=== PATIENT | female | born 1990 ===

== ENCOUNTER 2022-07-26 10:12 | Inpatient (IN) ==
[2022-07-26] MEDS ORDERED: LIDOCAINE 1% LOCAL 20 ML VIAL INFIL PRN (10:27)
[2022-07-26] MEDS ORDERED: PENICILLIN G POTASSIUM 6 MU in DEXTROSE 5% 250 ML IV STA (10:27)
[2022-07-26] MEDS ORDERED: OXYTOCIN 30 UNITS/500 ML BAG IV PRN ×2 (10:27→11:44)
[2022-07-26] MEDS ORDERED: LACTATED RINGER'S 1,000 ML IV PRN (10:27)
[2022-07-26] MEDS ORDERED: ePHEDrine sulfate 50 MG/ML AMP ONE (10:34)
[2022-07-26] MEDS ORDERED: SODIUM CHLORIDE 0.9% INJ 10 ML VIAL ONE (10:35)
[2022-07-26] MEDS ORDERED: fentaNYL citrate 100 MCG/2 ML VIAL ONE (10:35)
[2022-07-26] MEDS ORDERED: BUPIVACAINE 0.25% 30 ML VIAL ONE (10:35)
[2022-07-26] MEDS ORDERED: LIDOCAINE 2%/EPINEPHRINE 1:200,000 20 ML SDV ONE (10:35)
[2022-07-26] MEDS ORDERED: fentaNYL 2MCG/ML ROPIVACAINE 1.25MG/ML 100 ML BAG EPI ONE (10:35)
--- NOTE | 2022-07-26 10:43 | History & Physical Report ---
Date of Service July 26, 2022 Assessment & Plan (1) Active labor at term: (2) Carrier of group B Streptococcus: Plan - Patient admitted to labor and delivery for active labor - Patient martín q 2-3 minutes and significantly uncomfortable - Requesting epidural - Patient is at 5-6 cm (from 2.5 overnight) w/ evidence of contractions - GBS positive, PCN ordered - Will augment PRN - Will consider ROM PRN - Labs pending History of Present Illness Chief Complaint: Labor Primary Care Provider: NO PCP Jihan is a 31 year old female G7Pe currently at EGD 40 0 with RODRIGO 07/26/21 by LMP 10/19/21 who is presenting to L&D for active labor. Complications: GBS+ Movement: Yes Fluid Loss/ROM: No Bloody show/discharge: No Contractions: Worsening since 7 AM External FHT and uterine monitor: Category 1, tracing reactive, good FHT variability (acels w/o dcels), evidence of contractions q2 minutes Last OB appointment: 07/25, regular care [facility]END[facility] Hx: Abnormal pap 12/23 (ASCUS), colposcopy recommended PP, HPV+, no other STI Labs: Blood Type: O+ Antibody Screen: Negative Hg/Hct (today): Pending WBC/Plt (today): Pending Rubella: Immune RPR: Non-reactive Gonorrhea: Negative Chlamydia: Negative HIV: Negative HbSAg: Negative GBS: Positive Quad Screen: Negative ROS: - Denies fever, chills, sweats - Denies dyspnea or pleuritic pain - Denies chest pain, palpitations, or pressure - Denies breast pain - Denies dysuria - Denies headache or visual changes Allergies Allergy/AdvReac Type Severity Reaction Status Date / Time horowitz Allergy Severe Swelling Verified 07/25/22 19:35 of Lip/Tongue/Throat chicken derived Allergy Severe Swelling Verified 07/25/22 19:35 of Lip/Tongue/Throat cinnamon Allergy Severe Swelling Verified 07/25/22 19:35 of Lip/Tongue/Throat egg Allergy Severe Swelling Verified 07/25/22 19:35 of Lip/Tongue/Throat onion Allergy Severe Swelling Verified 07/25/22 19:35 of Lip/Tongue/Throat strawberry Allergy Severe Swelling Verified 07/25/22 19:35 of Lip/Tongue/Throat wheat Allergy Severe Swelling Verified 07/25/22 19:35 of Lip/Tongue/Throat chlorpromazine Allergy Intermediate Anxiety Verified 07/25/22 19:35 [From Thorazine] hydroxyzine [From Vistaril] Allergy Intermediate Anxiety Verified 07/25/22 19:35 milk Allergy Intermediate Swelling Verified 07/25/22 19:35 of Lip/Tongue/Throat peanut Allergy Swelling Verified 07/25/22 11:06 of Lip/Tongue/Throat Home Medications Medication Instructions Recorded Confirmed Type famotidine 20 mg tablet (Pepcid) 20 mg PO DAILY 07/26/22 07/26/22 History Patient History Medical History Anxiety COVID-19 affecting in first trimester February 2022 History of chicken pox History of depression Pt reports she has PP depression after each delivery HPV (human papilloma virus) infection Miscarriage Status post elective Surgical History S/P dilatation and curettage TAB Family History Mother Hypertension Father Hypertension Denies family history of Ovarian cancer Breast cancer Colorectal cancer Social History Smoking Status: Never smoker Hx Alcohol Use: No Hx Substance Use: No Preferred Language: Ghanaian Communication Ability: Effective Credit Collections Rep Required: No Beliefs That Will Affect Care: None marital status: Single marital status details: shalini PendletonJR (26) [phone] Current Living Situation: Significant Other Current Living Situation Comment: Lives with Reji and daughter current occupational status: employed current occupation: [employer] Other Information That Helps Us Care for You: No Feels Safe at Home: Yes Assistive Devices: Glasses Physical Exam Physical Exam: General: Alert, oriented. No acute distress. Cardiac: Regular rate and rhythm, no murmurs/rubs/gallops. Respiratory: Clear to auscultation bilaterally a/p, no wheezes/rales/rhonchi. No increased work of breathing. Symmetrical chest rise. No respiratory distress. Abdomen: Gravid; reactive FHTs; Position: V Pelvic: per Dr. Healy Lower Extremities: No lower extremity edema or swelling. No deep calf pain. Jessika's negative bilaterally. Supervising Physician Co-Signing Physician Notes patient seen with resident and agree with the above findings and plan. Resident Activity Tracking Resident Involvement: Resident Care Provided Care Provided: OB Delivery
[2022-07-26] MEDS ORDERED: NALOXONE HCL 1 MG in SODIUM CHLORIDE 0.9% 1000ML 1,000 ML IV PRN (10:45)
[2022-07-26] MEDS ORDERED: ePHEDrine sulfate 50 MG/ML AMP IV PRN (10:45)
[2022-07-26] MEDS ORDERED: NALOXONE HCL 0.4 MG/1 ML VIAL/CARP IV PRN (10:45)
[2022-07-26] MEDS ORDERED: NALBUPHINE HCL INJ 10 MG/ML AMP IV PRN (10:45)
[2022-07-26] MEDS ORDERED: fentaNYL 2MCG/ML ROPIVACAINE 1.25MG/ML 100 ML BAG EPI PRN (10:45)
[2022-07-26] MEDS ORDERED: ONDANSETRON INJ 2 MG/ML 2 ML VIAL IV PRN (10:45)
--- NOTE | 2022-07-26 10:47 | Anesthesiology Consultation ---
Date of Service July 26, 2022 Assessment & Plan ASA ASA2 Proposed Anesthesia Anesthesia Type: General Risk / Benefits Reviewed With: PT / POA / Parent / Guardian, Accepts Plan and Informed Consent Obtained History Height/Weight Height: 5 ft 2 in Weight: 77.564 kg Allergies Allergy/AdvReac Type Severity Reaction Status Date / Time horowitz Allergy Severe Swelling Verified 07/25/22 19:35 of Lip/Tongue/Throat chicken derived Allergy Severe Swelling Verified 07/25/22 19:35 of Lip/Tongue/Throat cinnamon Allergy Severe Swelling Verified 07/25/22 19:35 of Lip/Tongue/Throat egg Allergy Severe Swelling Verified 07/25/22 19:35 of Lip/Tongue/Throat onion Allergy Severe Swelling Verified 07/25/22 19:35 of Lip/Tongue/Throat strawberry Allergy Severe Swelling Verified 07/25/22 19:35 of Lip/Tongue/Throat wheat Allergy Severe Swelling Verified 07/25/22 19:35 of Lip/Tongue/Throat chlorpromazine Allergy Intermediate Anxiety Verified 07/25/22 19:35 [From Thorazine] hydroxyzine [From Vistaril] Allergy Intermediate Anxiety Verified 07/25/22 19:35 milk Allergy Intermediate Swelling Verified 07/25/22 19:35 of Lip/Tongue/Throat peanut Allergy Swelling Verified 07/25/22 11:06 of Lip/Tongue/Throat Medications Home Medications Medication Instructions Recorded Confirmed Last Taken famotidine 20 mg tablet (Pepcid) 20 mg PO DAILY 07/26/22 07/26/22 Unknown Past Medical History Medical History Anxiety COVID-19 affecting in first trimester February 2022 History of chicken pox History of depression Pt reports she has PP depression after each delivery HPV (human papilloma virus) infection Miscarriage Status post elective Exercise / Class Metabolic Activity II 4-5 Yardwork/Stairs/Walk up hill Past Family History Family History Mother Hypertension Father Hypertension Denies family history of Ovarian cancer Breast cancer Colorectal cancer Past Surgical History Surgical History S/P dilatation and curettage TAB Past Anesthesia History No Hx of Anesthesia Complications and No Family Hx of Anesthesia Complications History of PONV No Hx of PONV and No Hx of Motion Sickness Social History Smoking Status: Never smoker Hx Alcohol Use: No Hx Substance Use: No substance use type: does not use Review of Systems denies fever/cough/ colds/ chest pain/ SOB/ JOSÉ MIGUEL denies JOSÉ MIGUEL Physical Exam Vital Signs Last Vital Signs Resp 18 07/26/22 10:30 ENMT Mouth: no TMJ abnormality and no dentition abnormality Thyromental Distance: > or= 3.5 Finger Breadths Mallampati Class: II Neck neck extension not limited Respiratory normal respiratory effort; no respiratory distress Auscultation: lungs clear to auscultation bilaterally Cardiovascular Rate/Rhythm: regular rate and regular rhythm Neurologic moves all extremities Psychiatric Orientation: alert and oriented x 3
[2022-07-26 11:12] LABS: Hemoglobin 11.8 g/dl (12.0-16.0); Mean Corpuscular Hemoglobin 29.9 pg (25.0-34.0); Mean Corpuscular Hgb Conc 32.8 g/dL (32.0-36.0); Mean Corpuscular Volume 91.4 fL (80.0-100.0); Mean Platelet Volume 11.5 fL (9.4-12.4); Platelet Count 169 K/uL (130-400); RDW Coefficient of Variation 14.4 % (11.5-14.5); RDW Standard Deviation 48.3 fL (36.4-46.3); Red Blood Count 3.94 M/uL (4.20-5.40); White Blood Count 8.64 K/ul (4.8-10.8)
[2022-07-26] MEDS ORDERED: BENZOCAINE 20% AER SPR 82.5 GM CAN EXT PRN (11:44)
[2022-07-26] MEDS ORDERED: IBUPROFEN 600 MG TAB PO PRN (11:44)
[2022-07-26] MEDS ORDERED: ACETAMINOPHEN 325 MG TAB PO PRN (11:44)
[2022-07-26] MEDS ORDERED: DIPHTHERIA/TETANUS/PERTUSSIS 0.5mL SYR/VIAL (Age 7+yrs) IM ONE (11:44)
[2022-07-26] MEDS ORDERED: HYDROCORTISONE ACETATE 25 MG SUPP PR PRN (11:44)
[2022-07-26] MEDS ORDERED: ACETAMINOPHEN 325 MG TAB ONE (11:50)
[2022-07-26] MEDS ORDERED: POLYETHYLENE (MIRALAX) 17 GM PACK PO PRN (11:50)
[2022-07-26] MEDS ORDERED: PENICILLIN G POTASSIUM 3 MU in DEXTROSE 5% 100 ML IV PRN (13:27)
--- NOTE | 2022-07-26 15:54 | Delivery Summary ---
DATE OF SERVICE: 07/26/2022 PROCEDURE: Normal spontaneous vaginal delivery. SURGEON: Drew Healy MD. [facility] ROOM: Dr. Sari Waldron, PGY-1. PREOPERATIVE DIAGNOSES: 1. Single intrauterine at 40 weeks, 0 days gestational age. 2. GBS positive. POSTOPERATIVE DIAGNOSES: 1. Single intrauterine at 40 weeks, 0 days gestational age. 2. GBS positive. 3. Status post procedure. ESTIMATED BLOOD LOSS: 300 mL DRAINS: None. FLUIDS: Continuous lactated Ringer. URINE OUTPUT: Not measured. COMPLICATIONS: None. FINDINGS: Viable female with weight and Apgars pending. DESCRIPTION OF PROCEDURE: The patient progressed to 10 cm dilated, 100% effaced, positive 2 station, pushed over intact perineum without anesthesia and delivered a viable female with weight and Apgars as noted above. Head of the delivered in RUTH position, restituted to left transverse . No nuchal cord was noted. Body and shoulders quickly followed. was noted to be vigorous soon after delivery and 1 minute delayed cord clamping was initiated. Cord was then double clamped a nd cut. remained on maternal abdomen. Cord blood was obtained. Attention was then turned t o delivery of the placenta, which was delivered intact, 3-vessel cord, gentle cord traction. On insp ection of the perineum, vagina, cervix, there was noted to be no lacerations. Bleeding was noted to be minimal. Sponge and instrument counts were correct at the completion of the case. Both mother an d stable in the immediate post-delivery period. Job ID: [id number]
[2022-07-27 06:17] LABS: Hematocrit (blood only) 29.1 % (37.0-47.0); Hemoglobin 9.8 g/dl (12.0-16.0); Mean Corpuscular Hemoglobin 30.2 pg (25.0-34.0); Mean Corpuscular Hgb Conc 33.7 g/dL (32.0-36.0); Mean Corpuscular Volume 89.8 fL (80.0-100.0); Mean Platelet Volume 11.4 fL (9.4-12.4); Platelet Count 183 K/uL (130-400); RDW Coefficient of Variation 14.4 % (11.5-14.5); RDW Standard Deviation 47.3 fL (36.4-46.3); Red Blood Count 3.24 M/uL (4.20-5.40); White Blood Count 9.42 K/ul (4.8-10.8)
--- NOTE | 2022-07-27 06:36 | Obstetrical Progress Note ---
Date of Service July 27, 2022 Assessment & Plan (1) care following vaginal delivery: Plan - Overall, feeling well and eating well today - Infant feeding going well without concern - Urinating and passing gas appropriately - Ambulating well in room - Pain controlled w/ Ibuprofen/Tylenol - Hgb 9.8 pm 07/27 - Vitals stable and wnl - Routine PP care progressing well - Anticipate discharge @ 24-48 hours PP - Recommending f/u outpatient in 6 weeks Admission and Anticipated Discharge Date Admission Date: July 26, 2022 Supervising Physician Co-Signing Physician Notes patient seen with resident and agree with the above findings and plan. Stable for discharge Vangie Bobo is a 31 year old female who is PPD #1 following delivery at [facility]. She reports feeling well overall this morning. - Ambulation - well throughout room - Voiding/Caal - independent voids, no dysuria or pressure - Gas/Stool - passing gas, no bowel movement - Diet - regular, no nausea or emesis - Lochia - diminishing, moderate amount - Infant Feeding Type - breast feeding - Pain Level - 0/10, controlled with Ibuprofen/Tylenol Review of Systems - Denies fever, chills, sweats - Denies shortness of breath, difficulty breathing, chest pain, palpitations, chest pressure. - Denies breast pain. - Denies dysuria. - Denies headache or changes in vision. Physical Exam Physical Exam: General: Alert, oriented. No acute distress. Cardiac: RRR, normal S1/S2, no murmurs/rubs/gallops. Respiratory: Non-labored, CTAB, no wheezes/rales/rhonchi. Symmetric chest rise. Abdomen: Soft, nontender, nondistended. Bowel sounds present. Uterus: Uterine fundus firm, palpable 2 cm below umbilicus. Lower Extremities: No lower extremity edema or swelling. No deep calf pain. Jessika's negative bilaterally. Results & Data ([facility]) Vital Signs (Past 12 Hours) Vital Signs Temp Pulse Resp BP Pulse Ox O2 Del Method 07/27/22 05:03 36.6 C 56 L 16 97/51 L 98 Room Air 07/27/22 01:30 36.8 C 18 98 Room Air 07/26/22 19:35 36.9 C 20 99 Room Air Resident Activity Tracking Resident Involvement: Resident Care Provided Care Provided: OB Delivery
[2022-07-27] MEDS ORDERED: PRENATAL VITAMIN 1 TAB PO SCH (08:00)
== END 2022-07-27 14:47 | disposition home or self-care (01) | DRG 807 ==
LOC: OPB 10:12 → 4S1 10:14 → 4E2 15:15